=== PATIENT | male | born 1995 | race Two or more races ===

== ENCOUNTER 2017-04-25 11:29 | Emergency (ER) | payer MEDICAID ==
[~2017-04-25] VITALS: Ht 172.7 cm; Wt 68.0 kg
[2017-04-25 11:36] VITALS: BP 129/62
== END 2017-04-25 12:11 | disposition home or self-care (01) ==
LOC: ER 11:29
DX: S50.862A Insect bite (nonvenomous) of left forearm, initial encounter (principal); L29.9 Pruritus, unspecified; W57.XXXA Bitten or stung by nonvenomous insect and other nonvenomous arthropods, initial encounter; Y93.89 Activity, other specified; Y92.89 Other specified places as the place of occurrence of the external cause; Y99.8 Other external cause status

== ENCOUNTER 2017-10-19 00:03 | Emergency (ER) | payer MEDICAID ==
[~2017-10-19] VITALS: Ht 172.7 cm; Wt 68.0 kg
[2017-10-19] MEDS ORDERED: ACETAMINOPHEN 325 MG TAB PO ONE (00:09)
[2017-10-19] MEDS ORDERED: NALBUPHINE HCL 10 MG/1ml INJECTION IV ONE (06:15)
[2017-10-19] MEDS ORDERED: ONDANSETRON HCL 4 MG/2 ML VIAL IV ONE (06:15)
[2017-10-19] MEDS ORDERED: SODIUM CHLORIDE 0.9% 1,000 ML IV ONE (06:45)
[2017-10-19] MEDS ORDERED: cefTRIAXone 1GM/10ml IVPUSH 10 ML IV ONE (06:45)
[2017-10-19 06:56] VITALS: BP 125/68
== END 2017-10-19 07:36 | disposition home or self-care (01) ==
LOC: ER 00:04
DX: J03.90 Acute tonsillitis, unspecified (principal); Z83.3 Family history of diabetes mellitus
CPT/HCPCS: 96361; 96374; 96375; 99284; J2300; J2405; J7030